=== PATIENT | male | born 1960 | race Caucasian/White ===

== ENCOUNTER 2018-12-18 15:33 | Emergency (ER) | payer OTHER, BC ==
[~2018-12-18] VITALS: Ht 175.3 cm; Wt 68.0 kg
[~2018-12-18 15:33] MED LIST: ATRIPLA TABLET1 TAB; METFORMIN HCL1000 M1
== END 2018-12-18 19:26 | disposition home or self-care (01) ==
LOC: ER 15:33
DX: B20 Human immunodeficiency virus [HIV] disease (principal); R50.9 Fever, unspecified; R78.81 Bacteremia; N39.0 Urinary tract infection, site not specified; B96.89 Other specified bacterial agents as the cause of diseases classified elsewhere

== ENCOUNTER 2019-09-26 08:24 | Outpatient (CLI) | payer OTHER, BC | END 2019-09-26 08:25 | disposition home or self-care (01) | LOC: SONOGRAMA 08:24 | DX: R10.84 Generalized abdominal pain (principal); N18.3 Chronic kidney disease, stage 3 (moderate); R31.29 Other microscopic hematuria ==

== ENCOUNTER 2021-09-03 07:24 | Outpatient (CLI) | payer OTHER, BC | END 2021-09-03 07:26 | disposition home or self-care (01) | LOC: NUCLEAR 07:24 | PROVIDERS: ATTEND Internal Medicine Pulmonary Disease | DX: I26.09 Other pulmonary embolism with acute cor pulmonale (principal) | CPT/HCPCS: 78580; A9540 ==

== ENCOUNTER 2021-10-01 17:00 | Inpatient (IN) | payer OTHER, BC ==
[~2021-10-01] VITALS: Ht 175.3 cm; Wt 65.8 kg
[2021-10-01] MEDS ORDERED: JANUMET 50-1,01 EACH (18:56)
[2021-10-01] MEDS ORDERED: IMIPRAMINE HCL10 MG (18:56)
[2021-10-01] MEDS ORDERED: TIVICAY50 MG (18:56)
[2021-10-01] MEDS ORDERED: DESCOVY 200-251 EACH (18:56)
[2021-10-20] MEDS ORDERED: FAMOTIDINE20 MG PO ×2 (18:22)
[2021-10-20] MEDS ORDERED: INTESTINEX680 M1 PO ×2 (18:22)
[2021-10-20] MEDS ORDERED: PROTEINEX-18 LI30 ML PO ×2 (18:23)
[2021-10-20] MEDS ORDERED: CARAFATE1 GM PO ×2 (18:23)
[2021-10-20] MEDS ORDERED: BACTRIM DS TAB1 EACH PO ×2 (18:25)
== END 2021-10-20 23:12 | disposition home or self-care (01) | DRG 977 ==
LOC: MEDI 17:00
PROVIDERS: ADMIT Internal Medicine Hematology & Oncology; ATTEND Internal Medicine Hematology & Oncology
PROC: 30233R1 Transfusion of Nonautologous Platelets into Peripheral Vein, Percutaneous Approach (ICD-10-PCS; principal; 2021-10-02)
PROC: 30233N1 Transfusion of Nonautologous Red Blood Cells into Peripheral Vein, Percutaneous Approach (ICD-10-PCS; 2021-10-03)
PROC: 07DR3ZX Extraction of Iliac Bone Marrow, Percutaneous Approach, Diagnostic (ICD-10-PCS; 2021-10-03)
PROC: 0HBLXZX Excision of Left Lower Leg Skin, External Approach, Diagnostic (ICD-10-PCS; 2021-10-08)
PROC: 02HV33Z Insertion of Infusion Device into Superior Vena Cava, Percutaneous Approach (ICD-10-PCS; 2021-10-14)
DX: D69.59 Other secondary thrombocytopenia (principal); B20 Human immunodeficiency virus [HIV] disease; E44.0 Moderate protein-calorie malnutrition; N39.0 Urinary tract infection, site not specified; Z16.39 Resistance to other specified antimicrobial drug; C92.A0 Acute myeloid leukemia with multilineage dysplasia, not having achieved remission; J20.1 Acute bronchitis due to Hemophilus influenzae; B96.89 Other specified bacterial agents as the cause of diseases classified elsewhere; D63.8 Anemia in other chronic diseases classified elsewhere; D70.8 Other neutropenia; R50.81 Fever presenting with conditions classified elsewhere; D46.Z Other myelodysplastic syndromes; L98.8 Other specified disorders of the skin and subcutaneous tissue; Z86.16 Personal history of COVID-19; N18.30 Chronic kidney disease, stage 3 unspecified; E11.9 Type 2 diabetes mellitus without complications

== ENCOUNTER 2021-10-22 11:38 | Inpatient (IN) | payer OTHER, BC ==
[~2021-10-22 11:38] MED LIST changes: +BACTRIM DS TAB1 EACH PO; +CARAFATE1 GM PO; +DESCOVY 200-251 EACH; +FAMOTIDINE20 MG PO; +IMIPRAMINE HCL10 MG; +INTESTINEX680 M1 PO; +JANUMET 50-1,01 EACH; +PROTEINEX-18 LI30 ML PO; +TIVICAY50 MG
== END 2021-10-24 15:38 | disposition home or self-care (01) | DRG 813 ==
LOC: SURH 11:38
PROVIDERS: ADMIT Internal Medicine Hematology & Oncology; ATTEND Internal Medicine Hematology & Oncology
PROC: 30233R1 Transfusion of Nonautologous Platelets into Peripheral Vein, Percutaneous Approach (ICD-10-PCS; principal; 2021-10-22)
DX: D69.59 Other secondary thrombocytopenia (principal); C92.A0 Acute myeloid leukemia with multilineage dysplasia, not having achieved remission; D61.818 Other pancytopenia; D46.4 Refractory anemia, unspecified; D63.8 Anemia in other chronic diseases classified elsewhere

== ENCOUNTER 2021-10-29 14:06 | Inpatient (IN) | payer OTHER, BC ==
[~2021-10-29] VITALS: Ht 175.3 cm; Wt 63.5 kg
[2021-11-20] MEDS ORDERED: BACTRIM DS TAB1 EACH PO (13:32)
[2021-11-20] MEDS ORDERED: FEVERALL325 MG RECTAL (13:33)
[2021-11-20] MEDS ORDERED: INTESTINEX680 M1 PO (13:33)
[2021-11-20] MEDS ORDERED: FAMOTIDINE20 MG PO (13:33)
[2021-11-20] MEDS ORDERED: FLUCONAZOLE100 MG PO (13:35)
== END 2021-11-20 21:03 | disposition home or self-care (01) | DRG 834 ==
LOC: ER 14:06 → MEDJ 20:38
PROVIDERS: ADMIT Internal Medicine Hematology & Oncology; ATTEND Internal Medicine Hematology & Oncology
PROC: 30233N1 Transfusion of Nonautologous Red Blood Cells into Peripheral Vein, Percutaneous Approach (ICD-10-PCS; principal; 2021-10-30)
PROC: 30233R1 Transfusion of Nonautologous Platelets into Peripheral Vein, Percutaneous Approach (ICD-10-PCS; 2021-11-02)
PROC: 02HV33Z Insertion of Infusion Device into Superior Vena Cava, Percutaneous Approach (ICD-10-PCS; 2021-11-04)
PROC: 30243R1 Transfusion of Nonautologous Platelets into Central Vein, Percutaneous Approach (ICD-10-PCS; 2021-11-08)
PROC: 30243N1 Transfusion of Nonautologous Red Blood Cells into Central Vein, Percutaneous Approach (ICD-10-PCS; 2021-11-09)
DX: C92.A0 Acute myeloid leukemia with multilineage dysplasia, not having achieved remission (principal); A41.89 Other specified sepsis; B20 Human immunodeficiency virus [HIV] disease; E44.0 Moderate protein-calorie malnutrition; Q93.89 Other deletions from the autosomes; B37.81 Candidal esophagitis; D46.Z Other myelodysplastic syndromes; D63.0 Anemia in neoplastic disease; D70.8 Other neutropenia; E86.0 Dehydration; D69.59 Other secondary thrombocytopenia; E11.22 Type 2 diabetes mellitus with diabetic chronic kidney disease; N18.30 Chronic kidney disease, stage 3 unspecified; R50.81 Fever presenting with conditions classified elsewhere; Z79.899 Other long term (current) drug therapy; Z93.2 Ileostomy status; Z86.16 Personal history of COVID-19; R53.81 Other malaise; R41.82 Altered mental status, unspecified